=== PATIENT | male | born 1995 | race Caucasian/White ===

== ENCOUNTER 2023-12-05 10:54 | Inpatient (IN) | payer OTHER ==
[2023-12-05 11:27] VITALS: BMI 23.5
[2023-12-05] MEDS ORDERED: NALOXONE HCL 0.4 MG/ML VIAL IM PRN (13:56)
[2023-12-05] MEDS ORDERED: guaiFENesin 600 MG TABLET.ER (FP) PO PRN (13:56)
[2023-12-05] MEDS ORDERED: POLYETHYLENE GLYCOL (HEALTHYLAX) 3350 17 GM PACKET PO PRN (13:56)
[2023-12-05] MEDS ORDERED: NALOXONE HCL (KLOXXADO) 8 MG SPRAY NS PRN (13:56)
[2023-12-05] MEDS ORDERED: ACETAMINOPHEN 325 MG TABLET (FP) PO PRN (13:56)
[2023-12-05] MEDS ORDERED: BENZONATATE 200 MG CAPSULE PO PRN (13:56)
[2023-12-05] MEDS ORDERED: MAG HYDROX/AL HYDROX/SIMETH 30 ML UNIT-DOSE CUP PO PRN (13:56)
[2023-12-05] MEDS ORDERED: BISMUTH SUBSALICYLATE 524 MG/30 ML PO PRN (13:56)
[2023-12-05] MEDS ORDERED: ONDANSETRON *ODT* 4 MG TABLET SL PRN (13:56)
[2023-12-05] MEDS ORDERED: IBUPROFEN 400 MG TABLET (FP) PO PRN (13:56)
[2023-12-05] MEDS ORDERED: LOPERAMIDE HCL 2 MG CAPSULE PO PRN (13:56)
[2023-12-05] MEDS ORDERED: MAGNESIUM HYDROX 2400MG/30ML ORAL SUSPENSION 30 ML CUP PO PRN (13:56)
[2023-12-05] MEDS ORDERED: BENZOCAINE/MENTHOL (CHLORASEPTIC ) LOZENGE MM PRN (13:56)
[2023-12-05] MEDS ORDERED: methaDONE HCL 10 MG TABLET (FOR DETOX USE ONLY) ONE (14:07)
[2023-12-05] MEDS: methaDONE HCL 10 MG TABLET (FOR DETOX USE ONLY) PO ONE (14:13)
[2023-12-05] MEDS: MELATONIN 5 MG TABLETS PO SCH (22:38)
[2023-12-05] MEDS: THIAMINE HCL 100 MG TABLET (FP) PO SCH (22:38)
[2023-12-05] MEDS: hydrOXYzine PAMOATE 25 MG CAPSULE (FP) PO PRN (22:39)
[2023-12-05] MEDS: cloNIDine HCL 0.1 MG TABLET PO PRN (22:39)
[2023-12-06] MEDS: PRENATAL VITAMINS W/ FOLIC ACID TABLET (FP) PO SCH (10:08)
[2023-12-06 13:07] LABS: HEMATOCRIT 39.2 % (35.4-49); HEMOGLOBIN 12.6 GM/dL (11.7-16.9); MCH 26.7 pg (25.7-33.7); MCHC 32.1 g/dl (32.0-35.9); MEAN CELL VOLUME 83.2 fl (80-96); PLATELET COUNT 408 10^3/uL (134-434); RBC 4.71 M/mm3 (4.00-5.60); RDW 15.2 % (11.9-15.9)
[2023-12-06 13:19] LABS: WHITE BLOOD COUNT 31.8 K/mm3 (4.0-10.0)
[2023-12-06 13:26] LABS: CHLORIDE 100 mmol/L (98-107); POTASSIUM 3.8 mmol/L (3.5-5.1); SODIUM 134 mmol/L (136-145)
[2023-12-06 14:01] LABS: ALBUMIN 2.8 g/dl (3.4-5.0); ANION GAP 12 mmol/L (4-13); BLOOD UREA NITROGEN 13.9 mg/dL (7-18); CALCIUM 8.3 mg/dL (8.5-10.1); CO2 22 mmol/L (21-32); GLUCOSE,RANDOM 190 mg/dL (74-106)
[2023-12-06 14:04] LABS: CREATININE 0.9 mg/dL (0.55-1.3); SGOT/AST 28 U/L (15-37)
[2023-12-06 14:06] LABS: BILIRUBIN,TOTAL 0.3 mg/dL (0.2-1); TOT PROT 6.5 g/dl (6.4-8.2)
[2023-12-06 14:07] LABS: ALK PHOS 149 U/L (45-117)
[2023-12-06 14:08] LABS: SGPT/ALT 59 U/L (13-61)
[2023-12-06] MEDS: METHOCARBAMOL 500 MG TABLET PO PRN (17:49)
[2023-12-06] MEDS: IBUPROFEN 600 MG TABLET (FP) PO PRN (17:49)
[2023-12-07] MEDS: methaDONE HCL 10 MG TABLET (FOR DETOX USE ONLY) PO ONE (10:09)
[2023-12-07] MEDS: cloNIDine HCL 0.1 MG TABLET PO PRN (15:26)
[2023-12-08] MEDS: cloNIDine HCL 0.1 MG TABLET PO PRN (10:12)
[2023-12-08] MEDS: NICOTINE 21 MG/24 HOURS TOPICAL PATCH TD PRN (11:38)
[2023-12-08 14:33] LABS: PH,URINE 5.5 (5.0-8.0); URINE APPEARANCE CLEAR; URINE BILIRUBIN NEGATIVE (NEGATIVE); URINE COLOR YELLOW; URINE GLUCOSE (UA) NEGATIVE (NEGATIVE); URINE KETONE NEGATIVE (NEGATIVE); URINE LEUK ESTERASE NEGATIVE (NEGATIVE); URINE NITRITE NEGATIVE (NEGATIVE); URINE PROTEIN NEGATIVE (NEGATIVE); URINE UROBILINOGEN 0.2 mg/dL (0.2-1.0)
[2023-12-09] MEDS: methaDONE HCL 10 MG TABLET (FOR DETOX USE ONLY) PO ONE (10:12)
[2023-12-09 11:58] LABS: HEMATOCRIT 39.5 % (35.4-49); MCH 27.5 pg (25.7-33.7); MCHC 32.9 g/dl (32.0-35.9); MEAN CELL VOLUME 83.8 fl (80-96); MEAN PLT VOLUME 7.8 fl (7.5-11.1); PLATELET COUNT 463 10^3/uL (134-434); RBC 4.71 M/mm3 (4.00-5.60); RDW 15.1 % (11.9-15.9); WHITE BLOOD COUNT 14.5 K/mm3 (4.0-10.0)
[2023-12-09 12:29] LABS: ANISOCYTOSIS 0; MACROCYTOSIS 0
[2023-12-09] MEDS: DICYCLOMINE HCL 10 MG CAPSULE PO PRN (20:33)
[2023-12-10 06:17] VITALS: RESP 18
[2023-12-10 09:15] VITALS: BP 123/65; PULSE 97; TEMP 97.7
== END 2023-12-10 09:50 | disposition home or self-care (01) | DRG 773 ==
LOC: YASAS 10:54 → Y6N 13:59
PROVIDERS: ADMIT Allergy & Immunology; ATTEND Surgery
PROC: HZ2ZZZZ Detoxification Services for Substance Abuse Treatment (ICD-10-PCS; principal; 2023-12-05)
DX: F11.23 Opioid dependence with withdrawal (principal); F14.20 Cocaine dependence, uncomplicated; F12.20 Cannabis dependence, uncomplicated; F17.210 Nicotine dependence, cigarettes, uncomplicated; F19.282 Other psychoactive substance dependence with psychoactive substance-induced sleep disorder; F19.280 Other psychoactive substance dependence with psychoactive substance-induced anxiety disorder; F39 Unspecified mood [affective] disorder; Z56.0 Unemployment, unspecified; Z59.00 Homelessness unspecified
CPT/HCPCS: 36415; 71045-TC-FY; 80053; 80305; 80307; 81003; 83036; 85025; 85027; 86780; 87811; 93005; 93010